=== PATIENT | male | born 1960 | race Caucasian/White ===

== ENCOUNTER 2022-01-23 21:05 | Emergency (ER) | payer OTHER, MEDICARE, MEDICAID ==
[~2022-01-23] VITALS: Ht 185.4 cm; Wt 100.8 kg
[2022-01-23 21:16] VITALS: BP 114/61
[2022-01-23] MEDS: ondansetron 4mg rapidly disintigrating tab PO ONE (22:11)
[2022-01-23 22:57] LABS: BASOPHILS % (AUTO) 0.2 % (0-1); EOSINOPHILS % (AUTO) 0.1 % (0-6); HEMATOCRIT 45.1 % (42.0-52.0); HEMOGLOBIN 14.8 g/dl (14.0-17.9); LYMPHOCYTES # (AUTO) 0.7 X10'3 (1.1-4.8); LYMPHOCYTES % (AUTO) 14.5 % (21-51); MEAN CORPUSCULAR HEMOGLOBIN 30.5 PG (27.0-31.0); MEAN CORPUSCULAR HGB CONC 32.8 g/dL (33.0-36.5); MEAN CORPUSCULAR VOLUME 92.8 FL (78-98); MEAN PLATELET VOLUME 7.7 FL (7.4-10.4); MONOCYTES # (AUTO) 0.3 X10'3 (0-0.9); MONOCYTES % (AUTO) 6.2 % (2-12); PLATELET COUNT 152 X10'3 (140-440); RED BLOOD COUNT 4.86 X10'6 (4.70-6.10); RED CELL DISTRIBUTION WIDTH 14.3 % (11.5-14.5); WHITE BLOOD COUNT 5.1 X10'3 (4.5-11.0)
[2022-01-23 23:03] LABS: ALANINE AMINOTRANSFERASE 36 U/L (12-78); ALBUMIN 3.7 G/DL (3.4-5.0); ALBUMIN/GLOBULIN RATIO 0.9 (1.1-1.5); ALKALINE PHOSPHATASE 82 IU/L (46-116); ANION GAP 5 (8-16); ASPARTATE AMINO TRANSFERASE 20 U/L (10-37); BILIRUBIN,TOTAL 0.4 MG/DL (0.1-1.0); BLOOD UREA NITROGEN 34 MG/DL (7-18); BUN/CREATININE RATIO 18.4 (5.4-32.0); CALCIUM 8.2 MG/DL (8.5-10.1); CHLORIDE 103 MMOL/L (99-107); CREATININE 1.85 MG/DL (0.60-1.10); GLUCOSE 197 MG/DL (70-104); POTASSIUM 3.8 MMOL/L (3.5-5.1); SODIUM 135 MMOL/L (135-145); TOTAL CARBON DIOXIDE 26.9 MMOL/L (24-32); TOTAL PROTEIN 7.9 G/DL (6.4-8.2); eGFR 37 ML/MIN
[2022-01-23] MEDS ORDERED: BUDE180A INH (23:19)
[2022-01-23] MEDS ORDERED: ALBU6.7H14 INH (23:19)
[2022-01-23] MEDS: dexamethasone sod phosphate 10mg/ml inj IV STA (23:32)
[2022-01-23] MEDS: BEBTELOVIMAB 175 MG/2 ML VIAL IV ONE (23:32)
--- NOTE | 2022-01-24 00:22 | NUR ---
IV DC'D PT BEING DISCHARGED DRESSING APPLIED
== END 2022-01-24 00:23 | disposition home or self-care (01) ==
LOC: ER 21:08
DX: U07.1 COVID-19 (principal)
CPT/HCPCS: 36415; 80053; 85025; 87502; 87503; 87635; 96374; 99284; C9803; J1100; M0222; Q0222